=== PATIENT | female | born 1985 | race Caucasian/White ===

== ENCOUNTER 2017-01-31 16:41 | Emergency (ER) | payer OTHER ==
--- NOTE | 2017-01-31 17:25 | ED Physician Documentation ---
General Adult - HISTORIAN Historian: patient - HPI Stated Complaint: dental pain Chief Complaint: General Adult Onset: days ago Timing: still present Severity: moderate Further Comments: yes (Pt is a 31 yo female with dental pain. Pt has had dental extractions of her R lower jaw last week and continues to have pain. Pt has been taking amoxicillin. Pt has f/u with dentist in [place], [place] in [facility].) - ROS CONST: no problems EYES/ENT: other (dental pain) CVS/RESP: none GI/: none MS/SKIN/LYMPH: none - PAST HX Past History: other (thyroid dz, splenectomy, b/l mastectomy) Allergies/Adverse Reactions: Allergies Allergy/AdvReac Type Severity Reaction Status Date / Time No Known Allergies Allergy Verified 12/06/15 15:41 Home Medications: Ambulatory Orders Medication Instructions Recorded Naproxen [Naprosyn] 500 mg PO [id number] PRN #30 tablet 12/06/15 - SOCIAL HX Smoking History: other (unknown) - FAMILY HX Family History: No - VITAL SIGNS Vital Signs: Vital Signs Temp Pulse Resp BP Pulse Ox 133/72 12/06/15 16:18 - REVIEWED ASSESSMENTS Nursing Assessment Reviewed: Yes Vitals Reviewed: Yes Progress - Progress Progress: Rx Tramadol 50 mg. Take one every 6 hrs as needed for moderate to severe pain. Continue antibiotics as prescribed. f/u dentist General Adult Physical Exam - PHYSICAL EXAM GENERAL APPEARANCE: mild distress EENT: other (poor dentition, tenderness R lower jaw) NECK: normal inspection, supple RESPIRATORY: no resp distress, chest non-tender CVS: reg rate & rhythm, heart sounds normal BACK: normal inspection SKIN: warm/dry, normal color EXTREMITIES: non-tender, normal range of motion NEURO: oriented X3, motor nml, sensation nml Discharge Clincal Impression: dental pain Referrals: Primary Doctor,No [Primary Care Provider] - Condition: Good Disposition: 01 HOME, SELF-CARE Decision to Admit: NO Decision Time: 17:28
[2017-01-31 17:32] VITALS: BP 164/107
== END 2017-01-31 17:30 | disposition home or self-care (01) ==
LOC: ED 16:41
DX: K08.89 Other specified disorders of teeth and supporting structures (principal)
CPT/HCPCS: 99283

== ENCOUNTER 2017-03-18 17:33 | Emergency (ER) | payer OTHER ==
--- NOTE | 2017-03-18 17:36 | ED Physician Documentation ---
General Adult - HISTORIAN Historian: patient - HPI Stated Complaint: chest/sinus congestion Chief Complaint: General Adult Onset: days ago (5) Timing: still present Severity: moderate Further Comments: yes (Pt is a 31 yo female with chest and sinus congestion x 4 days. No fever.) - ROS CONST: other (malaise) EYES/ENT: none, sore throat CVS/RESP: cough GI/: none MS/SKIN/LYMPH: none - PAST HX Past History: other (cancer, thyroid d/o) Allergies/Adverse Reactions: Allergies Allergy/AdvReac Type Severity Reaction Status Date / Time No Known Allergies Allergy Verified 03/18/17 17:45 Home Medications: Ambulatory Orders Medication Instructions Recorded Levothyroxine Sodium [Synthroid] 03/18/17 - SOCIAL HX Smoking History: cigarettes - FAMILY HX Family History: No - VITAL SIGNS Vital Signs: Vital Signs Temp Pulse Resp BP Pulse Ox 164/107 01/31/17 17:54 - REVIEWED ASSESSMENTS Nursing Assessment Reviewed: Yes Vitals Reviewed: Yes Progress - Progress Progress: CXR: neg Rx Z-gurjit (Azithromycin). Use as directed on package. Rx Albuterol (90 mcg/spray) MDI. Take 2 puffs every 4 to 6 hrs as needed. Rx Robitussin AC (with codeine). Take 10 ml (two teaspoons) every 4 to 6 hrs as needed for cough. General Adult Physical Exam - PHYSICAL EXAM GENERAL APPEARANCE: mild distress EENT: pharynx normal NECK: normal inspection, supple RESPIRATORY: no resp distress, wheezes CVS: reg rate & rhythm, heart sounds normal BACK: normal inspection, no CVA tenderness SKIN: warm/dry, normal color EXTREMITIES: non-tender, normal range of motion, no evidence of injury NEURO: oriented X3, motor nml, sensation nml Discharge Clincal Impression: Bronchitis Referrals: Primary Doctor,No [Primary Care Provider] - Condition: Good Disposition: 01 HOME, SELF-CARE Decision to Admit: NO Decision Time: 18:13
--- NOTE | 2017-03-18 18:00 | Diagnostic Imaging Report ---
[facility] [id number] [facility].[address] [id number] Report Submission Date: Mar 18, 2017 5:58:47 PM [employer] Patient Study Name: MIRI PANIAGUA Date: Mar 18, 2017 5:49:29 PM [employer] Modality Type: CR Gender: F Description: CHEST : 81 Institution: [facility] Physician: MARCIO DOSS Examination: PA and lateral chest. History: Evaluate lung bates. Findings: PA lateral chest demonstrate a normal cardiac and mediastinal silhouette. No focal infiltrate. No blunting of the costophrenic margins. Bilateral breast implants. Osseous structures are appropriate for age. Impression: No acute pulmonary process. Electronically signed on Mar 18, 2017 5:58:47 PM [employer] by: Ephraim GILES
[2017-03-18 18:20] VITALS: BP 132/84
== END 2017-03-18 18:18 | disposition home or self-care (01) ==
LOC: ED 17:33
DX: J40 Bronchitis, not specified as acute or chronic (principal)
CPT/HCPCS: 71020; 99283

== ENCOUNTER 2018-01-14 12:47 | Emergency (ER) | payer MEDICAID, OTHER ==
--- NOTE | 2018-01-14 13:17 | ED Physician Documentation ---
Sore Throat/Dental Pain - HISTORIAN Historian: patient - HPI Stated Complaint: Dental pain for a week Chief Complaint: Dental Pain Additional Information: Patient presents to the ED with a 1 week history of left upper dental pain. Patient states she is undergoing extraction of all her teeth so she can get dentures. Her last extraction was about 2 months ago. She denies fever. Onset: days ago (7 days) Context: Fractured Tooth, Dental Caries Associated Symptoms: denies: fever, chills Worsened By: heat, cold - ROS CONST: no problems CVS/RESP: none GI/: denies: nausea, vomiting MS/SKIN/LYMPH: denies: muscle aches NEURO/PSYCH: denies: headache - PAST HX Past History: dental surgery Other History: none Allergies/Adverse Reactions: Allergies Allergy/AdvReac Type Severity Reaction Status Date / Time No Known Allergies Allergy Verified 01/14/18 13:09 Home Medications: Ambulatory Orders Medication Instructions Recorded Methimazole 10 mg PO D 01/14/18 Penicillin V Potassium [Pen V K] 500 mg PO BID 10 Days #20 tablet 01/14/18 Propranolol HCl [Inderal] 60 mg PO D 01/14/18 Tramadol HCl [Ultram] 50 mg PO Q8 PRN #12 tablet 01/14/18 - SOCIAL HX Smoking History: greater than 1 pack/day Alcohol Use: none Drug Use: none - FAMILY HX Family History: No - VITAL SIGNS Vital Signs: Vital Signs Temp Pulse Resp BP Pulse Ox 99 F 92 H 16 137/86 97 01/14/18 12:47 01/14/18 12:47 01/14/18 12:47 01/14/18 12:47 01/14/18 12:47 - REVIEWED ASSESSMENTS Nursing Assessment Reviewed: Yes Vitals Reviewed: Yes Dental Pain Physical Exam - EXAM General Appearance: no acute distress Head/Neck: No: pain over sinuses, cervical lymphadenopathy, pain on palpation (L) Eyes: eyes nml inspection Mouth/Throat: dental tenderness, gum swelling around teeth, widespread dental decay. No: drooling, trismus, tonsillar exudate, peritonsillar mass, increased saliva, hoarse voice Ear/Nose: nml inspection Respiratory: no resp. distress, breath sounds nml CVS: reg. rate & rhythm Abdomen: soft, normal bowel sounds, non-tender Extremities: non-tender Skin: warm/dry Neuro/Psych: none Discharge Clincal Impression: Dental caries, Infected dental carries Prescriptions: Penicillin V Potassium [Pen V K] 500 mg PO BID 10 Days #20 tablet Tramadol HCl [Ultram] 50 mg PO Q8 PRN #12 tablet PRN Reason: Pain Referrals: Primary Doctor,No [Primary Care Provider] - 2 Days Additional Instructions: Take all antibiotics as directed. Follow up with Dentist as soon as possible to have dental extraction. Condition: Good Disposition: 01 HOME, SELF-CARE Decision to Admit: NO Date of Decison to Admit: 01/14/18 Decision Time: 13:18
[2018-01-14 13:51] VITALS: BP 132/84
== END 2018-01-14 13:40 | disposition home or self-care (01) ==
LOC: ED 12:47
DX: K04.7 Periapical abscess without sinus (principal); K08.89 Other specified disorders of teeth and supporting structures